=== PATIENT | female | born 1975 | race Caucasian/White ===

== ENCOUNTER 2018-10-04 22:46 | Emergency (ER) | payer SELFPAY ==
[~2018-10-04] VITALS: Ht 160 cm; Wt 64.0 kg
[2018-10-04 22:50] VITALS: BP 134/78; PULSE 95; RESP 18; Ht 160 cm; Wt 64.0 kg
== END 2018-10-04 23:39 | disposition left against medical advice (07) ==
LOC: E/R 22:46
DX: Z53.21 Procedure and treatment not carried out due to patient leaving prior to being seen by health care provider (principal)
CPT/HCPCS: 93005